=== PATIENT | male | born 1970 | race African-American/Black ===

== ENCOUNTER 2024-10-30 14:20 | Emergency (ER) | payer OTHER, SELFPAY ==
--- OUTSIDE RECORDS SUMMARY | 2024-10-30 14:34 | XMS_ITS | Referral Summary ---
Author Organization [facility] Address [address] [place] [address] Care Team Providers Care Repairer Art Objects Name Role Phone Anne-Marie Martinez MD Primary Care Provider [phone] Source Comments [facility],non-owned Affiliates and Associated Physician Practices is amultiple site organization consisting of ambulatory clinics and hospital sitesin [place], [place], [place] and [place]. This disclosure is being madepursuant to the Care Everywhere program and may not contain all information available regarding this patient. Last updated 18.[facility] [employer] Encounters Date Type Department Care Team Description 08/01/2024 Transcribe Orders [facility] - Centralized Scheduling [address] [place] [id number] Dax Ervin Glaucoma, unspecified glaucoma type, unspecified laterality from Last 3 Months Allergies No known active allergies Medications * Be aware that medications may not be up to date on this document. Alwaysverify current medications with the patient. Medication Sig Dispensed Refills Start Date End Date Status lisinopril-hydroCHLOR Othiazide (Prinzide; Zestoretic) 10-12.5 MG tablet Take 1 (one) tablet by mouth every morning 02/06/2024 Active tamsulosin (Flomax) 0.4 MG capsule Take 1 (one) capsule by mouth at bedtime Active amLODIPine (Norvasc) 5 MG tablet Take 1 (one) tablet by mouth every morning 02/06/2024 Active triamcinolone acetonide (Kenalog) 0.5 % ointment APPLY THIN LAYER TOPICALLY TO THE AFFECTED AREA TWICE DAILY Active ketoconazole (Nizoral) 2 % shampooIndications:Ot her seborrheic dermatitis Apply to wet hair, face, and trunk, leave on for 3 minutes, then rinse; daily. 30 days supply 120 mL 5 06/19/2024 Active clobetasol (Temovate) 0.05 % solutionIndications:O ther seborrheic dermatitis Apply to affected areas on scalp twice daily as needed for itching and rash. 30 days supply. 50 mL 3 06/19/2024 Active clindamycin (Cleocin) 1 % lotionIndications:Pse udofolliculitis barbae Apply to affected area on face daily. 30 day supply. 60 mL 2 06/19/2024 Active triamcinolone acetonide (Kenalog) 0.1 % creamIndications:Rash and other nonspecific skin eruption Apply to affected areas on thighs twice daily as needed for rash. 30 days supply. 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
--- OUTSIDE RECORDS SUMMARY | 2024-10-30 14:34 | XMS_ITS | Clinical Summary ---
Author Organization [email or web address] Address [address] [facility] [place] [address] Care Team Providers Care Final Assembler Boat Name Role Phone Anne-Marie Martinez MD Primary Care Provider [phone] Source Comments [email or web address],non-owned Affiliates and Associated Physician Practices is amultiple site organization consisting of ambulatory clinics and hospital sitesin [place], [place]. This disclosure is being madepursuant to the Care Everywhere program and may not contain all information available regarding this patient. 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 Encounters Date Type Department Care Team Description 08/01/2024 Transcribe Orders [facility] - Centralized Scheduling [address] [place] [phone] Dax Ervin Glaucoma, unspecified glaucoma type, unspecified laterality from Last 3 Months Social History Tobacco Use Types Packs/Day Years Used Date Smoking Tobacco: Never Assessed Sex and Gender Information Value Date Recorded Sex Assigned at Not on file Gender Identity Not on file Sexual Orientation Not on file Plan of Treatment Health Maintenance Due Date Last Done Comments COLOGUARD (AGES 45-75) - COL ON CA SCREENING 1971 COLON MONITORING 1971 COLONOSCOPY - COLON CA SCREENING 1971 CT COLONOGRAPHY - COLON CA SCREENING 1971 Colorectal Cancer Screening 1971 FIT - COLON CA SCREENING 1971 FLEX SIG - COLON CA SCREENING 1971 LIPID TESTING 1971 HIV SCREENING 12/04/1986 HEPATITIS C SCREENING 11/30/1989 DTAP/TDAP/TD VACCINES (1 - Tdap) 12/04/1990 HEPATITIS B VACCINE (1 of 3 - 19+ 3-dose series) 12/04/1990 PNEUMOCOCCAL VACCINE 50+ (1 of 1 - PCV) 12/04/2021 ZOSTER VACCINE (1 of 2) 12/04/2021 COVID-19 VACCINE (1 - 2023-2 5 season) 2024 INFLUENZA VACCINE (#1) 2024 DEPRESSION SCREENING 09/26/2024 HIB VACCINE Aged Out No longer eligi ble based on patient's age to complete this topic HPV VACCINE Aged Out No longer eligi ble based on patient's age to complete this topic MENINGOCOCCAL (Group B) VACCINE Aged Out No longer eligible based on patient's age to complete this topic MENINGOCOCCAL VACCINE Aged Out No tatiana mauricio eligible based on patient's age to complete this topic PNEUMOCOCCAL VACCINE Aged Out No long er eligible based on patient's age to complete this topic Care Teams Final Assembler Boat Relationship Specialty Start [place] [address] [address] PCP - General Internal Medicine 07/01/10
--- OUTSIDE RECORDS SUMMARY | 2024-10-30 14:34 | XMS_ITS | CONTINUITY OF CARE DOCUMENT ---
Author Name sally zavala Address Unknown Organization [facility] Address [address] [place] [address] [address] [place] [address] Phone [phone] Care Team Providers Care Subject Scientific Research Name Role Phone Veto [place], Kylah Unavailable Kylah Laws MD Unavailable [phone] INSURANCE PROVIDERS Payer name Policy type / Coverage type Ally red democrat ID [place] MEDICAID (2) Medicaid [id number]
--- OUTSIDE RECORDS SUMMARY | 2024-10-30 14:35 | XMS_ITS | Encounter Summary ---
Author Organization [facility] Address [address] [place] [address] Care Team Providers Care Desk Director Name Role Phone Nidia Michellee Sudheer LALA Primary Care Provider [phone] Encounter Details Date Type Department Care Team (Late st Contact Info) Description 10/30/2024 Telephone [facility] Gastroenterology at [address] [place] [address] Delano Mccann MD [address] [place] [address] [address] [place] [address] Social History Tobacco Use Types Packs/Day Years Used Date Smoking Tobacco: Some Days Cigarettes AUDIT-C Answer Date Recorded Q1: How often do you have a drink containing alcohol? 4 or more times a week 10/26/2024 Q2: How many drinks containi ng alcohol do you have on a typical day when you are drinking? Patient unable to answer Q3: How often do you have si x or more drinks on one occasion? Monthly 10/26/2024 PHQ-2 Answer Date Recorded PHQ-2 Total Score 0 10/26/2024 Sex and Gender Information Value Date Recorded Sex Assigned at Not on file Legal Sex Male 10:14 AM PARTY PLAN SALES HOST/HOSTESS Gender Identity Not on file Sexual Orientation Not on file documented as of this encounter Miscellaneous Notes * Telephone Encounter - Kadi Latif - 10/30/2024 1:34 PM CST Patient called to schedule a colonoscopy. Please call us at [phone] Y PLAN SALES HOST/HOSTESS documented in this encounter Plan of Treatment Not on file documented as of this encounter Visit Diagnoses Not on filedocumented in this encounter Care Teams Desk Director Relationship Specialty Start Date End Date Sharri Michelle DO [address] [facility] [address] [place] [address] [place] [address] PCP - General Family Medicine 10/26/24 documented as of this encounter
--- OUTSIDE RECORDS SUMMARY | 2024-10-30 14:35 | XMS_ITS | Encounter Summary ---
Author Organization [facility] Address [address] [place] [address] Care Team Providers Care Sheetmetal Patternmaker Name Role Phone Anne-Marie Martinez MD Primary Care Provider [phone] Reason for Referral * Consultation (Routine) - Closed Specialty Diagnoses / Procedures Referred By Karen ellis Referred To Contact Ophthalmology Diagnoses Glaucoma, unspecified glaucoma type, unspecified laterality Dax Ervin Oph [facility] Gl [address] [place] [address] Referral ID Status Reason Start Date Expiration Date V isits Requested Visits Authorized [id number] Closed Specialty Services Required 08/01/2024 08/01/2025 1 1 ORDER SORTING CLERK Encounter Details Date Type Department Care Team (Latest Contact Info) Description 08/01/2024 Transcribe Orders [facility] - Centralized Scheduling [address] [place] [phone] Dax Ervin Glaucoma, unspecified glaucoma type, unspecified laterality Social History Tobacco Use Types Packs/Day Years Used Date Smoking Tobacco: Never Assessed Sex and Gender Information Value Date Recorded Sex Assigned at Not on file Gender Identity Not on file Sexual Orientation Not on file documented as of this encounter Plan of Treatment Scheduled Referrals Name Type Priority Associated Diagnoses Order Schedule AMB REFERRAL TO OPHTHALMOLOGY Outpatient Referral Routine Glaucoma, unspecified glaucoma type, unspecified laterality 1 Occurrences starting 08/01/2024 until 08/01/2025 documented as of this encounter Visit Diagnoses Diagnosis Glaucoma, unspecified glaucoma type, unspecified laterality- Primary documented in this encounter Care Teams Sheetmetal Patternmaker Relationship Specialty Start [place] [address] [address] PCP - General Internal Medicine 07/01/10 documented as of this encounter
--- OUTSIDE RECORDS SUMMARY | 2024-10-30 14:35 | XMS_ITS | Clinical Summary ---
Author Organization [place] Address [address] [place] [address] Care Team Providers Care Child Care Worker Name Role Phone Sharri Michelle Primary Care Provider [phone] Allergies No known active allergies Medications amLODIPine (NORVASC) 5 mg tabletIndication s:hypertension Take 1 tablet (5 mg total) by mouth nightly 90 tablet 1 5 10/26/19 26 Active lisinopriL (PRINIVIL,ZESTRI L) 10 mg tabletIndication s:Benign hypertension with CKD (chronic kidney disease) stage III (HCC) Take 1 tablet (10 mg total) by mouth daily 90 tablet 1 5 10/26/19 26 Active triamcinolone (KENALOG) 0.1 % ointmentIndicati ons:skin rash Apply to affected areas bid for up to 2 wks prn rash, may repeat after a 1-wk drug-free holiday if rash persists. 80 g 5 Active clindamycin-anu oyl peroxide (BENZACLIN) gelIndications:A cne Vulgaris Apply topically 2 (two) times a day 50 g 5 10/26/19 26 Active amLODIPine (NORVASC) 5 mg tablet Take 1 tablet (5 mg total) by mouth floor scrubber before breakfast 4 10/26/19 25 Discontin ued(Reord er) lisinopril-hydro CHLOROthiazide (ZESTORETIC) 10-12.5 mg per tablet Take 1 tablet by mouth floor scrubber before breakfast 4 10/26/19 25 Discontin ued(Alter monserrat therapy) Active Problems Problem Noted Date Diagnosed Date Benign hypertension with CKD (chronic kidney disease) stage III 10/26/2024 Assessment & Plan (10/26/2024 10:11 AM SUPPLY TECHNICIAN): Mildly elevated, blood pressure goal is less than 140/90. Adjusted current medications by discontinuing lisinopril-hydrochlorothiazide due to chronic kidney disease. Prescribed lisinopril only, plus amlodipine. Use as directed. Low- sodium diet recommended. Referred to nephrology for further evaluation. Prediabetes 10/26/2024 Assessment & Plan (10/26/2024 10:11 AM SUPPLY TECHNICIAN): Dietary modifications recommended. Low-carbohydrate. Stage 3a chronic kidney disease 10/26/2024 Assessment & Plan (10/26/2024 10:11 AM SUPPLY TECHNICIAN): Increase water intake, discontinued lisinopril with hydrochlorothiazide, wrote script for lisinopril only. Referred to nephrology for further evaluation and management. Nodular acne 10/26/2024 Assessment & Plan (10/26/2024 10:12 AM SUPPLY TECHNICIAN): Topical medication prescribed. Referred to Dermatology for further evaluation and management. Chronic eczema 10/26/2024 Assessment & Plan (10/26/2024 10:12 AM SUPPLY TECHNICIAN): Topical medication prescribed, use as directed. Patient understands that he has a moisturize as well as use a topical steroid cream. Encouraged patient to purchase petroleum jelly. Referred to dermatology for further evaluation and management. Encounters Date Type Department Care Team Description 10/30/2024 Telephone [facility] Gastroenterology at [address] [place] [address] Delano Mccann MD 10/26/2024 9:00 AM SUPPLY TECHNICIAN Office Visit [facility] Family Medicine at [place] [address] [address] Sharri Michelle, Annual physical exam (Primary Dx); Benign hypertension with CKD (chronic kidney disease) stage III (HCC); Prediabetes; Stage 3a chronic kidney disease (HCC); Chronic eczema; Nodular acne; Screening for malignant neoplasm of colon; Screening for deficiency anemia; Encounter for screening for other digestive system disorders; Encounter for screening examination for impaired glucose regulation and diabetes mellitus; Encounter for lipid screening for cardiovascular disease; Screening for thyroid disorder; Screening for blood or protein in urine; Need for hepatitis C screening test; Need for hepatitis B screening test; Screening PSA (prostate specific antigen) from Last 3 Months Immunizations Name Administration Dates Next Due Influenza, Unspecified 10/26/2024(Deferred: Tona ent Refused) Surgical History Surgery Date Site/Laterality Comments APPENDECTOMY Medical History Medical History Date Comments Hypertension Chronic kidney disease Congenital enlarged kidney Family History Medical History Relation Name Comments Cancer Father Hypertension Mother Lupus Mother Relation Name Status Comments Father Mother Alive Social History Tobacco Use Types Packs/Day Years Used Date Smoking Tobacco: Some Days Cigarettes Tobacco Cessation:Ready to Q uit: Not Asked; Counseling Given: Not Answered AUDIT-C Answer Date Recorded Q1: How often [...] on file Legal Sex Male 10:14 AM SUPPLY TECHNICIAN Gender Identity Not on file Sexual Orientation Not on file Obstetrics History Last Filed Vital Signs Vital Sign Reading Time Taken Comments Blood Pressure 142/90 10/26/2024 8:41 AM SUPPLY TECHNICIAN Pulse 78 10/26/2024 8:41 AM SUPPLY TECHNICIAN Temperature 36.7 ??C (98.1 ??F) 10/26/2024 8:41 AM CS T Respiratory Rate 18 10/26/2024 8:41 AM SUPPLY TECHNICIAN Oxygen Saturation 99% 10/26/2024 8:41 AM SUPPLY TECHNICIAN Inhaled Oxygen Concentration - - Weight 73.9 kg (163 lb) 10/26/2024 8:41 AM SUPPLY TECHNICIAN Height 167.6 cm (5' 5.98 ) 10/26/2024 8:41 AM CS T Body Mass Index 26.32 10/26/2024 8:41 AM SUPPLY TECHNICIAN Plan of Treatment Health Maintenance Due Date Last Done Comments Colon Cancer Screening-Colonoscopy 1971 Hepatitis C Screening 1971 Prostate Cancer Screening-PSA 1971 Pneumococcal vaccine <65 (1 of 2 - PCV) 12/04/1977 DTaP/Tdap/Td Vaccine (1 - Tdap) 12/04/1982 Hepatitis B Screening 12/04/1989 Zoster Vaccine (1 of 2) 12/04/2021 Covid-19 Vaccine (3 - season) 2024, 09/25/2021 Influenza Vaccine (#1) 2024 Depression Screening 10/26/2025 10/26/2024 Regular Well Visit/Exam 18-64 10/26/2025 10/26/2024 Insurance Member Subscriber Plan / Payer (Ef fective 2018-Present) Name:Golden James Sr. Relation to Subscriber:Self Name:Golden James Sr. Payer ID:[id number] (NAIC) Group ID:Not on file Type:MEDICAID RISK OTHER Address: [address] [place] [id number] [facility] Member Subscriber Plan / Payer (Ef fective 2018-Present) Name:Golden James Sr. Relation to Subscriber:Self Name:Golden James Sr. Payer ID:[id number] (NAIC) Group ID:Not on file Type:MEDICAID RISK OTHER Address: [address] [place] [phone] [employer] Care Teams Child Care Worker Relationship Specialty Start Date End Date Sharri Michelle DO [address] [facility] [place] [address] PCP - General Family Medicine 10/26/24
--- OUTSIDE RECORDS SUMMARY | 2024-10-30 14:35 | XMS_ITS | Clinical Summary ---
Author Organization [facility] Address [address] [place] [address] Phone Care Team Providers Care Art Objects Salesperson Name Role Phone Tom Arboleda MD Primary Care Provider [phone] Allergies No known active allergies Medications Medication Sig Dispensed Refills Start Date End Date Status acetaminophen (TYLENOL) 325 MG tablet Take 650 mg by mouth every 6 (six) hours if needed. Active sodium bicarbonate 650 MG tablet Take 650 mg by mouth 2 (two) times a day. Active thiamine (VITAMIN B-1) 100 MG tablet Take 100 mg by mouth 1 (one) time each day. Active MAGNESIUM-OXIDE 400 (241.3 Mg) MG tablet TK 1 T PO Q 12 HOURS 0 12/20/2018 Active minoxidil (LONITEN) 2.5 MG tablet Take 2.5 mg by mouth 1 (one) time each day. 2 tabs at bedtime Active amLODIPine (NORVASC) 2.5 MG tablet Take 2.5 mg by mouth at bed time. Active metoprolol succinate XL (TOPROL-XL) 50 MG 24 hr tablet Take 50 mg by mouth at bed time. Active ampicillin (PRINCIPEN) 500 MG capsule ampicillin 500 mg capsule Active ketoconazole (NIZORAL) 2 % shampoo ketoconazole 2 % shampoo APPLY TO THE AFFECTED AREA(S), LATHER, LEAVE IN PLACE FOR 5 MINUTES, AND THEN RINSE OFF WITH WATER BY TOPICAL ROUTE ONCE DAILY Active ketoconazole (NIZORAL) 2 % cream ketoconazole 2 % topical cream APPLY TO THE AFFECTED AREA(S) BY TOPICAL ROUTE ONCE DAILY Active lisinopril (PRINIVIL,ZESTRIL) 10 MG tablet lisinopril 10 mg tablet Active potassium chloride (KLOR-CON M20) 20 MEQ CR tablet potassium chloride ER 20 mEq tablet,extended release(part/cryst) Active Active Problems Problem Noted Date Diagnosed Date Hyperparathyroidism due to renal insufficiency 1 10/02/2018 Chronic kidney disease stage 4 01/10/2019 Hypertensive renal disease 01/10/2019 Anemia 01/10/2019 Resolved Problems Problem Noted Date Diagnosed Date Resolved Date Ciqlt-hc-mznmgyb renal failure 01/10/2019 08/02/2019 Essential hypertension 01/10/201909/27 Pyelonephritis 01/10/2019 08/02/2019 Encounters Date Type Department Care Team Description 08/19/2024 Orders Only [facility] [address] [facility] [address] [place] [address] Missy Hubbard NP 08/17/2024 Refill [facility] [address] [facility] [address] [place] [address] Onesimo Alexander MD from Last 3 Months Family History Medical History Relation Comments Hypertension Brother Cancer Father Diabetes Father Diabetes Mother Hypertension Mother Relation Status Comments Brother Father Mother Social History Tobacco Use Types Packs/Day Years Used Date Smoking Tobacco: Every Day Cigarettes Smokeless Tobacco: Never Alcohol Use Standard Drinks/Week Comments Yes 0 (1 standard drink = 0.6 oz pure alcohol) 4 or more times weekly (3-4 drinks) Sex and Gender Information Value Date Recorded Sex Assigned at Not on file Gender Identity Not on file Sexual Orientation Not on file Last Filed Vital Signs Vital Sign Reading Time Taken Comments Blood Pressure 124/77 02/07/2019 12:05 PM CDT Pulse 78 02/07/2019 12:05 PM CDT Temperature - - Respiratory Rate - - Oxygen Saturation - - Inhaled Oxygen Concentration - - Weight 74.4 kg (164 lb) 02/07/2019 12:05 PM CDT Height 167.6 cm (5' 6 ) 02/07/2019 12:05 PM CDT Body Mass Index 26.47 02/07/2019 12:05 PM CDT Plan of Treatment Health Maintenance Due Date Last Done Comments Pneumococcal PPSV23 Highest Risk Adult (1 of 3 - PCV13 ) 12/04/1990 Influenza Vaccine (#1) 2024 Care Teams Art Objects Salesperson Relationship Specialty Start Date End Date Tom Arboleda MD [address] [place] [address] PCP - General Family Medicine 01/10/19
--- OUTSIDE RECORDS SUMMARY | 2024-10-30 14:35 | XMS_ITS | Referral Summary ---
Author Organization [place] [id number] [facility] Address [address] [place] [address] Care Team Providers Care Social Worker Aide Name Role Phone Sharri Michelle DO Primary Care Provider [phone] Encounters Date Type Department Care Team Description 10/30/2024 Telephone [facility] G[place]ology at [place] [address] [facility] [address] [place] [address] Delano Mccann MD 10/26/2024 9:00 AM CIGARETTE TIPPER Office Visit [facility] Family Medicine at [place] [address] [facility] [address] [place] [address] Sharri Michelle DO Annual physical exam (Primary Dx); Benign hypertension [...] (prostate specific antigen) from Last 3 Months Allergies No known active allergies Medications amLODIPine [...] drug-free holiday if rash persists. 80 g 1 5 Active clindamycin-anu oyl peroxide (BENZACLIN) gelIndications:A cne Vulgaris Apply topically 2 (two) times a day 50 g 1 5 10/26/19 26 Active amLODIPine (NORVASC) 5 mg tablet Take 1 tablet (5 mg total) by mouth sleeping car conductor before breakfast 4 10/26/19 25 Discontin ued(Reord er) lisinopril-hydro CHLOROthiazide (ZESTORETIC) 10-12.5 mg per tablet Take 1 tablet by mouth sleeping car conductor before breakfast 4 10/26/19 25 Discontin ued(Alter monserrat therapy) Active Problems Problem Noted Date Diagnosed Date Benign hypertension with CKD (chronic kidney disease) stage III 10/26/2024 Assessment & Plan (10/26/2024 10:11 AM CIGARETTE TIPPER): Mildly elevated, blood pressure goal is less than 140/90. Adjusted current medications by discontinuing lisinopril-hydrochlorothiazide due to chronic kidney disease. Prescribed lisinopril only, plus amlodipine. Use as directed. Low- sodium diet recommended. Referred to nephrology for further evaluation. Prediabetes 10/26/2024 Assessment & Plan (10/26/2024 10:11 AM CIGARETTE TIPPER): Dietary modifications recommended. Low-carbohydrate. Stage 3a chronic kidney disease 10/26/2024 Assessment & Plan (10/26/2024 10:11 AM CIGARETTE TIPPER): Increase water intake, discontinued lisinopril with hydrochlorothiazide, wrote script for lisinopril only. Referred to nephrology for further evaluation and management. Nodular acne 10/26/2024 Assessment & Plan (10/26/2024 10:12 AM CIGARETTE TIPPER): Topical medication prescribed. Referred to Dermatology for further evaluation and management. Chronic eczema 10/26/2024 Assessment & Plan (10/26/2024 10:12 AM CIGARETTE TIPPER): Topical medication prescribed, use as directed. Patient understands that he has a moisturize as well as use a topical steroid cream. Encouraged patient to purchase petroleum jelly. Referred to dermatology for further evaluation and management. Immunizations Name Administration Dates Next Due Influenza, Unspecified 10/26/2024(Deferred: Tona ent Refused) Social History Tobacco Use Types Packs/Day Years [...] on file Legal Sex Male 10:14 AM CIGARETTE TIPPER Gender Identity Not on file Sexual Orientation Not on file Last Filed Vital Signs Vital Sign Reading Time Taken Comments Blood Pressure 142/90 10/26/2024 8:41 AM CIGARETTE TIPPER Pulse 78 10/26/2024 8:41 AM CIGARETTE TIPPER Temperature 36.7 ??C (98.1 ??F) 10/26/2024 8:41 AM CS T Respiratory Rate 18 10/26/2024 8:41 AM CIGARETTE TIPPER Oxygen Saturation 99% 10/26/2024 8:41 AM CIGARETTE TIPPER Inhaled Oxygen Concentration - - Weight 73.9 kg (163 lb) 10/26/2024 8:41 AM CIGARETTE TIPPER Height 167.6 cm (5' 5.98 ) 10/26/2024 8:41 AM CS T Body Mass Index 26.32 10/26/2024 8:41 AM CIGARETTE TIPPER Plan of Treatment Not on file Insurance [facility] [employer] OOS Member Subscriber Plan / Payer (Ef fective 2024-Present) Name:Golden James Sr. Relation to Subscriber:Self Name:Golden James Laxmi Moon. Payer ID:[id number] (IC) Type: DEIDRA Address: [facility] [address] [place] [id number] Care Teams Social Worker Aide Relationship Specialty Start Date End Date Sharri Michelle DO [address] [place] [address] PCP - General Family Medicine 10/26/24
--- OUTSIDE RECORDS SUMMARY | 2024-10-30 14:35 | XMS_ITS | Patient Health Summary ---
Author Organization [facility] [employer] Address [address] [facility] [place] [address] Care Team Providers Care Rn Recruitment Name Role Phone Anne-Marie [place] MD Primary Care Provider [phone] Note from [facility],non-owned Affiliates and Associated Physician Practices is amultiple site organization consisting of ambulatory clinics and hospital sitesin [place]. This disclosure is being madepursuant to the Care Everywhere program and may not contain all information available regarding this patient. Last updated 18.[facility] [employer] Allergies No known active allergies Medications * Be aware that medications may not be up to date on this document. Alwaysverify current medications with the patient. * lisinopril-hydroCHLOROthiazide (Prinzide; Zestoretic) 10-12.5 MG tablet (Started 02/06/2024) Take 1 (one) tablet by mouth every morning * tamsulosin (Flomax) 0.4 MG capsule Take 1 (one) capsule by mouth at bedtime * amLODIPine (Norvasc) 5 MG tablet(Started 02/06/2024) Take 1 (one) tablet by mouth every morning * triamcinolone acetonide (Kenalog) 0.5 % ointment APPLY THIN LAYER TOPICALLY TO THE AFFECTED AREA TWICE DAILY * ketoconazole (Nizoral) 2 % shampoo(Started 06/19/2024) Apply to wet hair, face, and trunk, leave on for 3 minutes, then rinse; daily. 30 days supply 5 refills by 06/19/2025 * clobetasol (Temovate) 0.05 % solution(Started 06/19/2024) Apply to affected areas on scalp twice daily as needed for itching and rash. 30 days supply. 3 refills by 06/19/2025 * clindamycin (Cleocin) 1 % lotion(Started 06/19/2024) Apply to affected area on face daily. 30 day supply. 2 refills by 06/19/2025 * triamcinolone acetonide (Kenalog) 0.1 % cream(Started 06/19/2024) Apply to affected areas on thighs twice daily as needed for rash. 30 days supply. 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 Scanned Document SCANNING ONLY * FUNGUS KARLIE - POINT OF CARE (AMB) [facility] (06/19/2024 11:30 AM CDT) KARLIE Prep Yes [facility] [address] [facility] Fluid BODY FLUID SPECIMEN / Unknown 06/19/2024 11:30 AM CDT Elliott Pinto MD LAB - POINT OF CARE ORDERABLES [facility] [address] [facility] [address] [facility] [place] [address] Care Teams Rn Recruitment Relationship Specialty [place] [address] [employer] [address] [place] [address] PCP - General Internal Medicine 07/01/10
[2024-10-30 15:15] VITALS: BP 160/80; PULSE 115; RESP 18; TEMP 36.7; O2SAT 100
--- NOTE | 2024-10-30 15:36 | ED_ITS ---
HPI - Skin/Abscess/Foreign Bdy General Chief complaint: Skin/Abscess/Foreign Body Stated complaint: Facial abcess- not feeling well Time Seen by Provider: 10/30/24 15:20 Focused HPI: Patient is a 53-year-old male who presents to the ER with complaints of a left chin abscess. He reports he gets abscesses intermittently. This abscess started approximately 2 weeks ago. Patient endorses a history of CKD, hypertension, and prediabetes. He denies any recent fevers, neck pain or stiffness, back pain or chest pain. GENERAL: Well-appearing, well-nourished, and in no acute distress. HEAD: Normocephalic, atraumatic. CHEST: Clear to auscultation. ?No respiratory distress. HEART: Regular rate and rhythm.? NEURO: ?Alert and oriented x3. Patient screened in triage and initial orders placed.? ?Additional care and disposition to be based upon?diagnostic testing and treatment. Related Data Allergies Allergy/AdvReac Type Severity Reaction Status Date / Time No Known Allergies Allergy Verified 10/30/24 15:19 Review of Systems Review of Systems: All systems reviewed & are unremarkable except as noted in HPI and below Exam Narrative: GENERAL: Well appearing, well-nourished, non-toxic, in no acute distress. HEAD: Normocephalic, atraumatic. Palpable abscess to L lower jaw-draining purulent drainage. NECK: Supple. No adenopathy, no masses. RESPIRATORY: Airway patent, respirations nonlabored. Clear to auscultation bilaterally, no rales, rhonchi, wheezing. CARDIOVASCULAR: Regular rate and rhythm without murmurs, rubs, or gallops. Peripheral pulses 2+ and equal bilaterally. ABDOMINAL: Soft, nontender, nondistended, no hepatosplenomegaly. Normoactive BS. MUSCULOSKELETAL: Moves all extremities. Strength/ROM intact without gross deformities. SKIN: Warm, dry, normal color. No rashes. NEURO: A&O X3. Speech clear. Cranial nerves II-XII grossly intact. Steady gait. No ataxic movements. PSYCHIATRIC: Appropriate mood and affect. Normal interaction. Course Vital Signs Vital signs: Vital Signs Temperature 36.7 C 10/30/24 15:15 Pulse Rate 115 H 10/30/24 15:15 Respiratory Rate 18 10/30/24 15:15 Blood Pressure 160/80 H 10/30/24 15:15 Pulse Oximetry 100 10/30/24 15:15 Oxygen Delivery Room Air 10/30/24 15:15 Temperature 36.7 C 10/30/24 15:15 Pulse Rate 115 H 10/30/24 15:15 Respiratory Rate 18 10/30/24 15:15 Blood Pressure 160/80 H 10/30/24 15:15 Pulse Oximetry 100 10/30/24 15:15 Oxygen Delivery Room Air 10/30/24 15:15 MDM - Skin/Abscess/Foreign Bdy MDM Narrative Medical decision making narrative: Patient is a 53-year-old male who presents to the ER with complaints of a left chin abscess. He reports he gets abscesses intermittently. This abscess started approximately 2 weeks ago. Patient endorses a history of CKD, hypertension, and prediabetes. He denies any recent fevers, neck pain or stiffness, back pain or chest pain. Labs Ordered: None necessary Imaging Ordered: None necessary Medications Ordered: Keflex p.o. Diagnosis: Left lower jaw abscess Patient Education/Shared MDM: RN attempted to extract more pus from pt's draining abscess. Results of examination shared with patient. He will be given his 1st dose of Keflex here in the ER. Patient strongly advised to maintain hydration status upon discharge, complete his full dose of antibiotics, and follow-up with his PCP. Strict return precautions provided. Patient verbalized understanding is in agreement with plan. Vital signs stable at time of discharge. All questions answered. Differential Diagnosis Differential diagnosis: Likely abscess of skin or subcutaneous tissue, cellulitis, eczema and contact dermatitis Discharge Plan Discharge Clinical Impression: Abscess of skin or subcutaneous tissue Patient Disposition: Home, Self-Care Condition: Stable Instructions: Antibiotic Form, Abscess (ED) Additional Instructions: Please return to the ER with an worsening symptoms. Follow-up with primary care provider in the next 2-3 days. Take all medications as prescribed and complete your whole dose of antibiotics. Patient Language: Icelandic Prescriptions: New cephalexin 500 mg capsule 500 mg PO Q8H Qty: 30 0RF Follow-up/Referrals: PHYSICIAN NOT ON STAFF,NONSTAFF [Primary Care Provider] -
[2024-10-30] MEDS: CEPHALEXIN 500 MG CAPSULE PO (18:02)
[2024-10-30] MEDS: KETOROLAC (*BKC) 60 MG/2 ML VIAL IM (18:03)
[2024-10-30 18:08] VITALS: BP 170/79; PULSE 69; RESP 16; TEMP 36.4; O2SAT 100
--- OUTSIDE RECORDS SUMMARY | 2024-10-30 18:21 | XMS_ITS | Clinical Summary ---
Author Organization [place] [id number] [facility] Address [address] [place] [address] Care Team Providers Care Electronic Musical Instrument Repairer Name Role Phone Sharri [place] Primary Care Provider [phone] Allergies No known active allergies Medications amLODIPine [...] 1 tablet (5 mg total) by mouth aemt before breakfast 4 10/26/19 25 Discontin ued(Reord er) lisinopril-hydro CHLOROthiazide (ZESTORETIC) 10-12.5 mg per tablet Take 1 tablet by mouth aemt before breakfast 4 10/26/19 25 Discontin ued(Alter monserrat therapy) Active Problems Problem Noted Date Diagnosed Date Benign hypertension with CKD (chronic kidney disease) stage III 10/26/2024 Assessment & Plan (10/26/2024 10:11 AM CHILD CARE DIRECTOR): Mildly elevated, blood pressure goal is less than 140/90. Adjusted current medications by discontinuing lisinopril-hydrochlorothiazide due to chronic kidney disease. Prescribed lisinopril only, plus amlodipine. Use as directed. Low- sodium diet recommended. Referred to nephrology for further evaluation. Prediabetes 10/26/2024 Assessment & Plan (10/26/2024 10:11 AM CHILD CARE DIRECTOR): Dietary modifications recommended. Low-carbohydrate. Stage 3a chronic kidney disease 10/26/2024 Assessment & Plan (10/26/2024 10:11 AM CHILD CARE DIRECTOR): Increase water intake, discontinued lisinopril with hydrochlorothiazide, wrote script for lisinopril only. Referred to nephrology for further evaluation and management. Nodular acne 10/26/2024 Assessment & Plan (10/26/2024 10:12 AM CHILD CARE DIRECTOR): Topical medication prescribed. Referred to Dermatology for further evaluation and management. Chronic eczema 10/26/2024 Assessment & Plan (10/26/2024 10:12 AM CHILD CARE DIRECTOR): Topical medication prescribed, use as directed. Patient understands that he has a moisturize as well as use a topical steroid cream. Encouraged patient to purchase petroleum jelly. Referred to dermatology for further evaluation and management. Encounters Date Type Department Care Team Description 10/30/2024 Telephone [facility] Gastroenterology at [address] [place] [address] Delano Mccann MD 10/26/2024 9:00 AM CHILD CARE DIRECTOR Office Visit [facility] Family Medicine at [place] [address] [address] Sharri Michelle, Annual physical exam [...] on file Legal Sex Male 10:14 AM CHILD CARE DIRECTOR Gender Identity Not on file Sexual Orientation Not on file Obstetrics History Last Filed Vital Signs Vital Sign Reading Time Taken Comments Blood Pressure 142/90 10/26/2024 8:41 AM CHILD CARE DIRECTOR Pulse 78 10/26/2024 8:41 AM CHILD CARE DIRECTOR Temperature 36.7 ??C (98.1 ??F) 10/26/2024 8:41 AM CS T Respiratory Rate 18 10/26/2024 8:41 AM CHILD CARE DIRECTOR Oxygen Saturation 99% 10/26/2024 8:41 AM CHILD CARE DIRECTOR Inhaled Oxygen Concentration - - Weight 73.9 kg (163 lb) 10/26/2024 8:41 AM CHILD CARE DIRECTOR Height 167.6 cm (5' 5.98 ) 10/26/2024 8:41 AM CS T Body Mass Index 26.32 10/26/2024 8:41 AM CHILD CARE DIRECTOR Plan of Treatment Health Maintenance Due Date [...] Regular Well Visit/Exam 18-64 10/26/2025 10/26/2024 Insurance [facility] [employer] OOS Care Teams Electronic Musical Instrument Repairer Relationship Specialty Start Date End Date Sharri Michelle DO [address] [place] [address] PCP - General Family Medicine 10/26/24
--- OUTSIDE RECORDS SUMMARY | 2024-10-30 18:21 | XMS_ITS | Encounter Summary ---
Author Organization [facility] Address [address] [place] [address] Care Team Providers Care Fretted Instruments Inspector Name Role Phone Anne-Marie [place] MD Primary Care Provider [phone] Reason for Referral * Consultation (Routine) - Closed Specialty Diagnoses / Procedures Referred By Karen ellis Referred To Contact Ophthalmology Diagnoses Glaucoma, unspecified glaucoma type, unspecified laterality Dax Ervin Oph [facility] Gl [address] [place] [address] Referral ID Status Reason Start Date Expiration Date V isits Requested Visits Authorized [id number] Closed Specialty Services Required 08/01/2024 08/01/2025 1 1 ISSION ASSOCIATE Encounter Details Date Type Department Care Team (Latest Contact Info) Description 08/01/2024 Transcribe Orders [facility] - Centralized Scheduling [address] [place] [address] Dax Ervin Glaucoma, unspecified glaucoma type, [...] Primary documented in this encounter Care Teams Fretted Instruments Inspector Relationship Specialty Start [place] [id number] [address] PCP - General Internal Medicine 07/01/10 documented as of this encounter
--- OUTSIDE RECORDS SUMMARY | 2024-10-30 18:21 | XMS_ITS | Clinical Summary ---
Author Organization [facility] Address [address] [place] [address] Phone Care Team Providers Care Welding Equipment Sales Representative Name Role Phone Tom Arboleda MD Primary Care Provider [phone] Allergies No known active allergies Medications Medication [...] Problem Noted Date Diagnosed Date Resolved Date [id number] renal failure 01/10/2019 08/02/2019 Essential hypertension 01/10/201909/27 Pyelonephritis 01/10/2019 08/02/2019 Encounters Date Type Department Care Team Description 08/19/2024 Orders Only [facility] [address] [facility] [address] [place] [address] Missy Hubbard NP 08/17/2024 Refill [facility] [address] [facility] [address] [place] [address] Onesimo Alexander MD from Last 3 Months [...] 12/04/1990 Influenza Vaccine (#1) 2024 Care Teams Welding Equipment Sales Representative Relationship Specialty Start Date End Date Tom Arboleda MD [address] [place] [address] PCP - General Family Medicine 01/10/19
--- OUTSIDE RECORDS SUMMARY | 2024-10-30 18:21 | XMS_ITS | Clinical Summary ---
Author Organization [employer] Address [address] [facility] [place] [address] Care Team Providers Care Department Store General Manager Name Role Phone Anne-Marie [place] MD Primary Care Provider [phone] Source Comments [employer],non-owned Affiliates and Associated Physician Practices is amultiple site organization consisting of ambulatory clinics and hospital sitesin [place], [place], [place] and [place]. This disclosure is being madepursuant to the Care Everywhere program and may not contain all information available regarding this patient. Last updated 18.[facility] Allergies No known active allergies Medications * [...] Orders [facility] - Centralized Scheduling [address] [place] [phone] Dax Ervin Glaucoma, unspecified glaucoma type, unspecified [...] age to complete this topic Care Teams Department Store General Manager Relationship Specialty Start [place] [address] [address] PCP - General Internal Medicine 07/01/10
--- OUTSIDE RECORDS SUMMARY | 2024-10-30 18:21 | XMS_ITS | Patient Health Summary ---
Author Organization [facility] [employer] Address [address] [facility] [place] [address] Care Team Providers Care Bomb Squad Officer Name Role Phone Anne-Marie [place] MD Primary Care Provider [phone] Note from [facility],non-owned Affiliates and Associated Physician Practices is amultiple site organization consisting of ambulatory clinics and hospital sitesin [place], [place], [place] and [place]. This disclosure is being madepursuant to the Care Everywhere program and may not contain all information available regarding this patient. Last updated 18.[facility] [employer] Allergies No known active allergies Medications * [...] KARLIE Prep Yes [facility] [address] [facility] Fluid BODY FLUID SPECIMEN / Unknown 06/19/2024 11:30 AM CDT Elliott Pinto MD LAB - POINT OF CARE ORDERABLES [facility] [address] [facility] [address] [facility], [place] [address] Care Teams Bomb Squad Officer Relationship Specialty [place] [address] [place] [employer] [address] [place] [address] PCP - General Internal Medicine 07/01/10
--- OUTSIDE RECORDS SUMMARY | 2024-10-30 18:21 | XMS_ITS | Referral Summary ---
Author Organization [place] [id number] [facility] Address [address] [place] [address] Care Team Providers Care Abrasive Grader Name Role Phone Sharri [place] DO Primary Care Provider [phone] Encounters Date Type Department Care Team Description 10/30/2024 Telephone [facility] Gastroenterology at [place] [address] [facility] [address] [place] [address] Delano Mccann MD 10/26/2024 9:00 AM ASSISTANT PRINCIPAL Office Visit [facility] Family Medicine at [place] [address] [facility] [address] [place] [address] Sharri [place] DO Annual physical [...] 1 tablet (5 mg total) by mouth rn social work before breakfast 4 10/26/19 25 Discontin ued(Reord er) lisinopril-hydro CHLOROthiazide (ZESTORETIC) 10-12.5 mg per tablet Take 1 tablet by mouth rn social work before breakfast 4 10/26/19 25 Discontin ued(Alter monserrat therapy) Active Problems Problem Noted Date Diagnosed Date Benign hypertension with CKD (chronic kidney disease) stage III 10/26/2024 Assessment & Plan (10/26/2024 10:11 AM ASSISTANT PRINCIPAL): Mildly elevated, blood pressure goal is less than 140/90. Adjusted current medications by discontinuing lisinopril-hydrochlorothiazide due to chronic kidney disease. Prescribed lisinopril only, plus amlodipine. Use as directed. Low- sodium diet recommended. Referred to nephrology for further evaluation. Prediabetes 10/26/2024 Assessment & Plan (10/26/2024 10:11 AM ASSISTANT PRINCIPAL): Dietary modifications recommended. Low-carbohydrate. Stage 3a chronic kidney disease 10/26/2024 Assessment & Plan (10/26/2024 10:11 AM ASSISTANT PRINCIPAL): Increase water intake, discontinued lisinopril with hydrochlorothiazide, wrote script for lisinopril only. Referred to nephrology for further evaluation and management. Nodular acne 10/26/2024 Assessment & Plan (10/26/2024 10:12 AM ASSISTANT PRINCIPAL): Topical medication prescribed. Referred to Dermatology for further evaluation and management. Chronic eczema 10/26/2024 Assessment & Plan (10/26/2024 10:12 AM ASSISTANT PRINCIPAL): Topical medication prescribed, use as directed. Patient [...] on file Legal Sex Male 10:14 AM ASSISTANT PRINCIPAL Gender Identity Not on file Sexual Orientation Not on file Last Filed Vital Signs Vital Sign Reading Time Taken Comments Blood Pressure 142/90 10/26/2024 8:41 AM ASSISTANT PRINCIPAL Pulse 78 10/26/2024 8:41 AM ASSISTANT PRINCIPAL Temperature 36.7 ??C (98.1 ??F) 10/26/2024 8:41 AM CS T Respiratory Rate 18 10/26/2024 8:41 AM ASSISTANT PRINCIPAL Oxygen Saturation 99% 10/26/2024 8:41 AM ASSISTANT PRINCIPAL Inhaled Oxygen Concentration - - Weight 73.9 kg (163 lb) 10/26/2024 8:41 AM ASSISTANT PRINCIPAL Height 167.6 cm (5' 5.98 ) 10/26/2024 8:41 AM CS T Body Mass Index 26.32 10/26/2024 8:41 AM ASSISTANT PRINCIPAL Plan of Treatment Not on file Insurance [facility] [employer] OOS Member Subscriber Plan / Payer (Ef fective 2024-Present) Name:Golden James Sr. Relation to Subscriber:Self Name:Golden James Laxmi Moon. Payer ID:[id number] (IC) Type: DEIDRA Address: [facility] [id number] [place] [id number] Care Teams Abrasive Grader Relationship Specialty Start Date End Date Sharri Michelle DO [address] [facility] [place] [address] PCP - General Family Medicine 10/26/24
--- OUTSIDE RECORDS SUMMARY | 2024-10-30 18:21 | XMS_ITS | Referral Summary ---
Author Organization [facility] Address [address] [place] [address] Care Team Providers Care Cardiac Nurse Name Role Phone Anne-Marie Martinez MD Primary Care Provider [phone] Source Comments [facility],non-owned Affiliates and Associated Physician Practices is amultiple site organization consisting of ambulatory clinics and hospital sitesin [place], [place] and [place]. This disclosure is being madepursuant to the Care Everywhere program and may not contain all information available regarding this patient. Last updated 18.[facility] [employer] Encounters Date Type Department Care Team Description 08/01/2024 Transcribe Orders [facility] - Centralized Scheduling [address] [place] [id number] Dax Ervin Glaucoma, unspecified glaucoma type, unspecified [...] of Treatment Not on file Care Teams Cardiac Nurse Relationship Specialty Start [place] [id number] [address] PCP - General Internal Medicine 07/01/10
--- OUTSIDE RECORDS SUMMARY | 2024-10-30 18:21 | XMS_ITS | Encounter Summary ---
Author Organization [facility] Address [address] [place] [address] Care Team Providers Care Manager Inpatient Name Role Phone Nidia Michellee Sudheer LALA Primary Care Provider [phone] Encounter Details Date Type Department Care Team (Late st Contact Info) Description 10/30/[address] [facility] Gastroenterology at [address] [place] [address] Delano Mccann MD [address] [place] [address] [address] [place] [address] Social History Tobacco Use Types [...] on file Legal Sex Male 10:14 AM [employer] Gender Identity Not on file Sexual Orientation Not on file documented as of this encounter Miscellaneous Notes * Telephone Encounter - Kim Banuelos MA - 10/30/2024 5:39 PM [employer] Left a message for pt to return call to schedule colonoscopy. [employer] * Telephone Encounter - Kadi Latif - 10/30/2024 1:34 PM CST Patient called to schedule a colonoscopy. Please call us at [phone] [employer] documented in this encounter Plan of Treatment Not on file documented as of this encounter Visit Diagnoses Not on filedocumented in this encounter Care Teams Manager Inpatient Relationship Specialty Start Date End Date Sharri Michelle DO [address] [address] [place] [address] [place] [id number] PCP - General Family Medicine 10/26/24 documented as of this encounter
== END 2024-10-30 18:22 | disposition home or self-care (01) ==
LOC: ANHED 18:19
PROVIDERS: Emergency Provider Registered Nurse
DX: L02.01 Cutaneous abscess of face (principal)
CPT/HCPCS: 87070; 87075; 87205; 96372; 99284; A9270; J1885